=== PATIENT | female | born 1970 | race Caucasian/White ===

== ENCOUNTER 2020-09-20 16:05 | Inpatient (IN) | payer OTHER ==
[~2020-09-20 16:05] MED LIST: ACETAMINOPHEN500 M1 PO; AMLODIPINE BESYL5 MG PO; ASCORBIC ACID500 MG PO; ASPIRIN81 MG PO; BENTYL10 MG PO; BREO ELLIPTA 11 EACH INH; CERTAGEN1 EACH PO; COLACE100 MG PO; LEVOTHYROXINE50 MCG PO; LISINOPRIL 20MG20 MG PO; MACROBID100 MG PO; MOTRIN600 MG PO; NORCO 5-325 TA1 EACH PO; OMEPRAZOLE 20MG20 MG PO; OXY-IR 5MG5 MG PO; PROTONIX 40MG T40 MG PO; SERTRALINE HCL100 MG PO; VENTOLIN HFA IN18 GM INH; VIBRAMYCIN100 MG PO; VITAMIN D-40010 MCG PO; ZANTAC150 MG PO
[2020-09-20 17:15] LABS: BASOPHIL 0.4 % (0-2); EOSINOPHIL 0.6 % (0-5); HCT 49.8 % (37.0-47.0); HGB 17.1 g/dl (12.5-16.0); LYMPHOCYTE 14.4 % (15-48); MCHC 34.3 g/dL (32.0-36.0); MCV 101.8 fL (78.0-100.0); MONOCYTE 4.2 % (0-12); MPV 10.5 fL (6.0-9.5); NRBC 0; PLT 249 K/uL (150-400); RBC 4.89 M/uL (4.20-5.40); RDW 12.9 % (11.5-14.0); WBC 13.7 K/uL (4.0-10.5)
[2020-09-20 17:25] LABS: BILIRUBIN 2+ mg/dL (NEGATIVE); BLOOD NEGATIVE Ery/uL (NEGATIVE); CLARITY HAZY (CLEAR); COLOR ORANGE (YELLOW); GLUCOSE (U) NORMAL (NORMAL); LEUKOCYTES NEGATIVE Leu/uL (NEGATIVE); NITRITE POSITIVE (NEGATIVE); PROTEIN 1+ mg/dL (NEGATIVE); SPECIFIC GRAVITY 1.025 (1.001-1.030); pH 6.5 (5.0-9.0)
[2020-09-20 17:31] LABS: BACTERIA 1+; SQUAMOUS EPITHELIAL CELLS 20-50; URINARY WBC RARE
[2020-09-20 17:33] LABS: LACTIC ACID 1.6 mmol/L (0.4-1.9)
[2020-09-20 17:38] LABS: ALBUMIN 3.7 g/dL (3.4-5.0); BILIRUBIN - TOTAL 1.5 mg/dL (0.2-1.0); CREATININE 0.9 mg/dL (0.51-0.95); GLOBULIN (CALCULATION) 3.8 g/dL; POTASSIUM 4.1 mmol/L (3.5-5.1); TOTAL PROTEIN 7.5 g/dL (6.4-8.2)
[2020-09-21 07:00] LABS: BASOPHIL 0.6 % (0-2); EOSINOPHIL 3.3 % (0-5); HCT 42.9 % (37.0-47.0); HGB 14.1 g/dl (12.5-16.0); LYMPHOCYTE 25.8 % (15-48); MCH 34.8 pg (25.0-31.0); MCHC 32.9 g/dL (32.0-36.0); MONOCYTE 6.2 % (0-12); MPV 10.8 fL (6.0-9.5); NEUTROPHIL 63.7 % (41-80); NRBC 0; PLT 197 K/uL (150-400); RBC 4.05 M/uL (4.20-5.40); RDW 13.2 % (11.5-14.0); WBC 7.9 K/uL (4.0-10.5)
[2020-09-21 07:02] LABS: MCV 105.9 fL (78.0-100.0)
[2020-09-21 07:10] LABS: INR 1.1 (0.9-1.2); PROTHROMBIN TIME 13.5 SECONDS (11.4-13.6)
[2020-09-21 07:19] LABS: BUN/CREAT RATIO (CALC) 9.7 RATIO; CREATININE 1.13 mg/dL (0.51-0.95); POTASSIUM 4.7 mmol/L (3.5-5.1)
--- NOTE | 2020-09-21 17:09 | NUR ---
1709- STILL WAITING ON EMS. [facility], CALLED FOR [facility] AT 1430.
--- NOTE | 2020-09-21 17:49 | NUR ---
pt left with EMS - [facility] AT 1740.
--- NOTE | 2020-09-22 10:12 | NUR ---
Patient was transferred to [facility] on 09/21/20. Patient shares a home with Kadie Cabrera. No needs were identified.
== END 2020-09-21 17:35 | disposition other institution (70) | DRG 394 ==
LOC: FER 16:05 → FTCU 22:08
PROVIDERS: Emergency Medicine; Nurse Practitioner; ADMIT Internal Medicine
DX: K43.1 Incisional hernia with gangrene (principal); Z68.42 Body mass index [BMI] 45.0-49.9, adult; E87.0 Hyperosmolality and hypernatremia; I10 Essential (primary) hypertension; K44.9 Diaphragmatic hernia without obstruction or gangrene; E03.9 Hypothyroidism, unspecified; K76.0 Fatty (change of) liver, not elsewhere classified; R23.1 Pallor; K21.9 Gastro-esophageal reflux disease without esophagitis; Z20.822 Contact with and (suspected) exposure to COVID-19; D75.1 Secondary polycythemia; E55.9 Vitamin D deficiency, unspecified; I11.0 Hypertensive heart disease with heart failure; I50.9 Heart failure, unspecified; E66.01 Morbid (severe) obesity due to excess calories; J44.9 Chronic obstructive pulmonary disease, unspecified; Z96.641 Presence of right artificial hip joint; Z96.651 Presence of right artificial knee joint; Z88.5 Allergy status to narcotic agent; Z88.1 Allergy status to other antibiotic agents; Z79.82 Long term (current) use of aspirin; Z79.899 Other long term (current) drug therapy; Z98.1 Arthrodesis status; Z98.890 Other specified postprocedural states
CPT/HCPCS: 36415; 71045; 80048; 80053; 81001; 83605; 83880; 85025; 85610; 87040; 93005; 94010; C9113; J1170; J1650; J2270; J2405; J2543; J7030; U0002